=== PATIENT | male | born 1950 | race Caucasian/White ===

== ENCOUNTER 2018-03-27 08:56 | Outpatient (RCR) | payer OTHER ==
--- NOTE | 2018-03-27 11:33 | RS.OPPTEV2 ---
Date of Note: 03/27/18 Visit #: 1 Number of visits approved by Insurance: Medicare Date of Evaluation: 03/27/18 Payer Source: MEDICARE Date of Onset/Injury/Change in Status: 02/27/18 Surgery Performed?: Yes Procedure Performed: Right Arthroscopic subacromial decompression, distal clavicle resection, and labral reconstruction. Treatment Diagnosis: Right shoulder pain, shoulder joint stiffness, s/p surgery History of Condition/Mechanism of Injury:: Mr. Allan reports he had no injury to the right shoulder. States he has had progressive pain and loss of function, which led him to seek medical intervention. Prior Level of Function.....Patient was independent with: ADL's, Self Care, Work /Vocation, Caregiving, Ambulation/Mobility, Community Integration/Access Functional Limitations: Sleep, Self Care, ADL's, Reaching, Pushing, Pulling, Lifting, Carrying Current Subjective/complaints:: Mr. Allan reports he was in a sling for approximately a day following surgery. States he has not been icing the shoulder because he felt like it did not help. He was instructed to perform pendulum exercise, plus he added active shoulder abduction on his own. States she demonstrated his active abduction to Dr. Villatoro, who said it was fine for him to do if it "worked for him." He reports more frequent throbbing in the right shoulder since surgery, but states the throbbing seems to be lower in intensity. He takes pain medicain PRN, which averages to be every other day. States his shoulder seems to hurt the most after he has had a difficult night sleeping. States he has slept on his right side for 60 years, and he has pain when he gets in that position. He has difficulty staying in any other position. He is right hand dominant and is limited with selfcare and ADL's since this surgery. Treatment Side (optional): Right *Precautions: avoid active shoulder flexion or resistance to biceps Medical History Medical History: Hypertension Surgical History Comments:: Left knee arthroscopy Hx Home Medications: Metprolol, Losartan, Potassium, Hydrocodone Patient's Goals: His goal is to regain pain-free AROM of the right shoulder. Pain Assessment - Pain Description Pain Location: Right shoulder Pain Description: Throbbing Current Pain Intensity: 4/10 Worst Pain Intensity: 10/10 Functional Outcome Measure UE Functional Index: 66 (66/80=17.5% impairment ) Other: Based on his presentation in the department, he presents to be at least 30-40% impaired. This is also due to the proximity of surgery and restrictions of active use of the right UE.. - G Codes & Severity Modifier G Codes & Modifier: NA Source of G Code score: NA Observation - Observation Posture: Forward Head, Rounded Shoulders Handedness: Right - Left Shoulder ROM Comments: Left shoulder AROM is WNL's. - Right Shoulder ROM Comments: Right shoulder PROM to 130 degrees with some discomfort reported at end range. Passive abduction to 120 degrees. Passive ER and IR 45 degrees. Patient voluntarily raises the right shoulder into abduction to approimately 105 -110 degrees. Explained to the patient to avoid pain and especially avoid raising the shoulder into flexion, to protect the surgery site. Explained multiple times to Mr. Allan that usually after this type of procedure active motion is not started for 6 weeks. - Left Shoulder Strength Comments: Left shoulder 4+/5 throughout. - Right Shoulder Strength Comments: Right shoulder strength not tested at this time. 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 Right Hand Mellowing Machine Operator Strength: 54-55 lbs. Dynamometer Testing Position: 2nd Position Sensation - Sensation Comments: Reports numbness in the tips of the fingers of the right hand. States this was present years before developing right shoulder pain. Interventions - Exercise/Activities/Manual Therapy Exercises/Activities: Patient received PROM to the right shoulder in all directions, while lying supine. Instructed patient how to perform Pendulum exercises correctly. He demonstrates that he has been performing active shoulder circles and side to side movement in the pendulum position, rather than focusing on letting the arm dangle. Also instructed in scapular retraction and the use of a cane or wand for AAROM into right shoulder abduction. Again emphasized to him, no active shoulder flexion or lifting anything with the right forearm/elbow. Patient advised to use ice on the right shoulder following exercises. Total minutes of Exercise: 18 mins Manual Therapy: NA HOME EXERCISE PROGRAM: Pendulum exercise, Scapular retraction, wand for AAROM into abduction in pain-free range. - Charges Timed Code Treatment Minutes: 18 mins Total Treatment Time: 55 mins Procedures billed for this date of service:: Eval Low, Ex EVALUATION COMPLEXITY LEVEL EVALUATION COMPLEXITY LEVEL: HISTORY: Medium (HTN), EXAM OF BODY SYSTEMS: Low, CLINICAL PRESENTATION: Medium (Pt needs repeated instructions to be compliant with postop restrictions), CLINICAL DECISION MAKING: Low Assessment Assessment: Mr. Allan presents to therapy ~ 4 weeks s/p right shoulder arthroscopic SAD, DCR, and labral reconstruction. He exhibits limited Passive and AROM of the right shoulder. He presents to be performing more active motion with the right shoulder than would be advised at this point following surgery. He received education of the surgical procedure and to avoid AROM into flexion , lifting with the right UE, and anything else that causes pain. He is right hand dominant and needs to regain functional, pain-free AROM to return to his prior level of function with selfcare and ADL's. Patient Education: Education of diagnosis, Body/Joint mechanics, Home Exercise Program, Home Safety, Activity Modification, Education of Plan of Care Rehab Potential: Good Short Term Goals Goal #1: Pt independent and compliant with HEP. Goal to be met by: 04/10/18 Goal #2: PROM of the left shoulder WNL's. Goal to be met by: 04/10/18 Goal #3: Pt to report right shoulder pain 3/10 at it's worst. Goal to be met by: 04/10/18 Goal #4: Pt to demonstrate improved postural awareness. Goal to be met by: 04/10/18 Usp Goals Goal #1: Pt knows HEP and to continue ex's to maintain functional level at D/C. Goal to be met by: 05/06/18 Goal #2: Pt able to sleep without interruption from right shoulder pain. Goal to be met by: 05/06/18 Goal #3: Right shldr AROM WFL's to perform all selfcare and ADL's. Goal to be met by: 05/06/18 Goal #4: Pt able to perform functional reaching as needed without shoulder pain. 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
== END 2018-03-27 23:59 | disposition short-term general hospital (02) ==
PROVIDERS: ATTEND Orthopaedic Surgery
DX: M25.511 Pain in right shoulder (principal); M25.611 Stiffness of right shoulder, not elsewhere classified; Z98.890 Other specified postprocedural states

== ENCOUNTER 2018-04-21 09:00 | Outpatient (RCR) ==
--- NOTE | 2018-03-31 15:13 | RS.OPPTDN ---
Subjective Date of Note: 03/31/18 Visit #: 2 Number of visits approved by Insurance: NA Date of Evaluation: 03/27/18 Payer Source: MEDICARE Treatment Diagnosis: Right shoulder pain, shoulder joint stiffness, s/p surgery Current Subjective/complaints:: Patient reports some pain, mostly a soreness in the right shoulder. *Precautions: avoid active shoulder flexion or resistance to biceps Pain Assessment - Pain Description Pain Location: right shoulder, right upper Current Pain Intensity: 4/10 Other Comments regarding Pain:: Pain is primarily in the upper arm. - Heat/Cryotherapy Treatment: Hot Pack ([id number] to the right shoulder and upper arm prior to EX. Patient in supine. ) Interventions - Exercise/Activities/Manual Therapy Exercises/Activities: Patient received PROM to the right shoulder in all directions, while lying supine. Isometrics for right shoulder add, abd, ext, IR , and ER, all in neutral position. Wand for short range flex/ext, chset press, and scap pro/retraction. Reveiwed Pendulum exercises. Total minutes of Exercise: 42mins Manual Therapy: NA HOME EXERCISE PROGRAM: Pendulum exercise, Scapular retraction, wand for AAROM into abduction in pain-free range. - Charges Timed Code Treatment Minutes: 42mins Total Treatment Time: 62mins Procedures billed for this date of service:: HP, EX3 Assessment: Focus on PROM and limited AAROM. Patient Education: Education of diagnosis, Body/Joint mechanics, Home Exercise Program, Activity Modification Comments: Patient education of dx, joint mechanics, and safety with activities. Patient demonstrates compliance with HEP?: Yes Short Term Goals Goal #1: Pt independent and compliant with HEP. Goal to be met by: 04/10/18 Progress towards Goal:: Progressing Goal #2: PROM of the left shoulder WNL's. Goal to be met by: 04/10/18 Goal #3: Pt to report right shoulder pain 3/10 at it's worst. Goal to be met by: 04/10/18 Goal #4: Pt to demonstrate improved postural awareness. Goal to be met by: 04/10/18 Progress towards Goal:: Progressing Retirement Goals Goal #1: Pt knows HEP and to continue ex's to maintain functional level at D/C. Goal to be met by: 05/06/18 Goal #2: Pt able to sleep without interruption from right shoulder pain. Goal to be met by: 05/06/18 Goal #3: Right shldr AROM WFL's to perform all selfcare and ADL's. Goal to be met by: 05/06/18 Goal #4: Pt able to perform functional reaching as needed without shoulder pain. 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
--- NOTE | 2018-04-02 14:55 | RS.OPPTDN ---
Subjective Date of Note: 04/02/18 Visit #: 3 Number of visits approved by Insurance: NA Date of Evaluation: 03/27/18 Payer Source: MEDICARE Treatment Diagnosis: Right shoulder pain, shoulder joint stiffness, s/p surgery Current Subjective/complaints:: Reports he is doing well with HEP. States he is following precautions as instructed. *Precautions: avoid active shoulder flexion or resistance to biceps Pain Assessment - Pain Description Pain Location: Right shoulder Current Pain Intensity: mild at rest Other Comments regarding Pain:: Reports he has discomfort at night with some disruption of sleep. - Heat/Cryotherapy Treatment: Hot Pack ([id number] to the right shoulder and upper arm prior to EX. Patient in sitting. ) Interventions - Exercise/Activities/Manual Therapy Exercises/Activities: Patient received PROM to the right shoulder in all directions, while lying supine. Isometrics for right shoulder add, abd, ext, IR , and ER, all in neutral position. Isometric bilatearal shoulder add and IR in neutral with ball between hands. Lifts ball for modified chest press and short range flexion in gravity eleminated positions. Wand for short range flex/ext, chset press, and scap pro/retraction. Began limited wall walking with right UE. Total minutes of Exercise: 42mins Manual Therapy: NA HOME EXERCISE PROGRAM: Pendulum exercise, Scapular retraction, wand for AAROM into abduction in pain-free range. - Charges Timed Code Treatment Minutes: 42mins Total Treatment Time: 57mins Procedures billed for this date of service:: HP EX3 Assessment: Patient progressing with exercise. Patient Education: Body/Joint mechanics, Home Exercise Program, Home Safety Patient demonstrates compliance with HEP?: Yes Short Term Goals Goal #1: Pt independent and compliant with HEP. Goal to be met by: 04/10/18 Progress towards Goal:: Progressing Goal #2: PROM of the left shoulder WNL's. Goal to be met by: 04/10/18 Progress towards Goal:: Progressing Goal #3: Pt to report right shoulder pain 3/10 at it's worst. Goal to be met by: 04/10/18 Progress towards Goal:: Progressing (h) Goal #4: Pt to demonstrate improved postural awareness. Goal to be met by: 04/10/18 Progress towards Goal:: Progressing Long-Term Goals Goal #1: Pt knows HEP and to continue ex's to maintain functional level at D/C. Goal to be met by: 05/06/18 Goal #2: Pt able to sleep without interruption from right shoulder pain. Goal to be met by: 05/06/18 Goal #3: Right shldr AROM WFL's to perform all selfcare and ADL's. Goal to be met by: 05/06/18 Goal #4: Pt able to perform functional reaching as needed without shoulder pain. Goal to be met by: 05/06/18 Plan Dates of Long-Term Goals: 05/06/18 Expiration date of current Insurance Approval:: 05/06/18 PLAN: Progress with PROM, AAROM, and gentle strengthening in safe ranges.
--- NOTE | 2018-04-04 12:06 | RS.OPPTDN ---
Subjective Date of Note: 04/04/18 Visit #: 4 Number of visits approved by Insurance: NA Date of Evaluation: 03/27/18 Payer Source: MEDICARE Treatment Diagnosis: Right shoulder pain, shoulder joint stiffness, s/p surgery Current Subjective/complaints:: Reports right shoulder is sore, but feels he is progressing with EX. *Precautions: avoid active shoulder flexion or resistance to biceps Pain Assessment - Pain Description Pain Location: right shoulder Pain Description: Tightness, Aching Pain Description: soreness Current Pain Intensity: mild Other Comments regarding Pain:: Reports difficulty sleeping at night due to right shoulder discomfort. Describes as an ache as the night progresses. - Heat/Cryotherapy Treatment: Hot Pack ([id number] to the right shoulder prior to EX. Pt in supine. ) Interventions - Exercise/Activities/Manual Therapy Exercises/Activities: Patient received PROM to the right shoulder in all directions, while lying supine. Isometrics for right shoulder add, abd, ext, IR , and ER, all in neutral position. Isometric bilatearal shoulder add and IR in neutral with ball between hands. Lifts ball for modified chest press and short range flexion in gravity eleminated positions. Wand for short range flex/ext, chset press, and scap pro/retraction. Instructed in right shoulder flex, ext, abd, and add isometrics in neutral with HEP and given copy. Total minutes of Exercise: 41mins Manual Therapy: NA HOME EXERCISE PROGRAM: Pendulum exercise, Scapular retraction, wand for AAROM into abduction in pain-free range. Isometric right shoulder flex, ext, abd, and add, all in neutral position supine or sitting. - Charges Timed Code Treatment Minutes: 41mins Total Treatment Time: 56mins Procedures billed for this date of service:: HP, EX3 Assessment: Patient progressing with light isometrics in HEP. Patient Education: Education of diagnosis, Home Exercise Program, Home Safety, Activity Modification Comments: Patient education of dx, mechanics, safety, and HEP. Patient demonstrates compliance with HEP?: Yes Short Term Goals Goal #1: Pt independent and compliant with HEP. Goal to be met by: 04/10/18 Progress towards Goal:: Progressing Goal #2: PROM of the left shoulder WNL's. Goal to be met by: 04/10/18 Progress towards Goal:: Progressing Goal #3: Pt to report right shoulder pain 3/10 at it's worst. Goal to be met by: 04/10/18 Progress towards Goal:: Progressing (h) Goal #4: Pt to demonstrate improved postural awareness. Goal to be met by: 04/10/18 Progress towards Goal:: Progressing Custodial Goals Goal #1: Pt knows HEP and to continue ex's to maintain functional level at D/C. Goal to be met by: 05/06/18 Goal #2: Pt able to sleep without interruption from right shoulder pain. Goal to be met by: 05/06/18 Goal #3: Right shldr AROM WFL's to perform all selfcare and ADL's. Goal to be met by: 05/06/18 Goal #4: Pt able to perform functional reaching as needed without shoulder pain. 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
--- NOTE | 2018-04-07 11:16 | RS.OPPTDN ---
Subjective Date of Note: 04/07/18 Visit #: 5 Number of visits approved by Insurance: NA Date of Evaluation: 03/27/18 Payer Source: MEDICARE Treatment Diagnosis: Right shoulder pain, shoulder joint stiffness, s/p surgery Current Subjective/complaints:: Patient reports increased soreness upper right arm. States he has increased HEP but continues to follow precautions. *Precautions: avoid active shoulder flexion or resistance to biceps Pain Assessment - Pain Description Pain Location: Right shouulder, upper arm Pain Description: soreness Current Pain Intensity: mild to mod - Heat/Cryotherapy Treatment: Hot Pack ([id number] to the right shoulder and upper arm prior to EX. Patient in sitting. ) Interventions - Exercise/Activities/Manual Therapy Exercises/Activities: Patient received PROM to the right shoulder in all directions, while lying supine. Isometrics for right shoulder add, abd, ext, IR , and ER, all in neutral position. Isometric bilatearal shoulder add and IR in neutral with ball between hands. Modified chest press and short range flexion while holding ball, gravity eleminated positions. Wand for short range flex/ext , chset press, and scap pro/retraction. Began shoulder pulleys for shoulder flexion only. Began modified [id number]-wall exercise. Total minutes of Exercise: 42mins Manual Therapy: NA HOME EXERCISE PROGRAM: Pendulum exercise, Scapular retraction, wand for AAROM into abduction in pain-free range. Isometric right shoulder flex, ext, abd, and add, all in neutral position supine or sitting. - Objective Findings Observations,measurements,etc.: Patient able to demo full active assisted right shoulder flexion today. - Charges Timed Code Treatment Minutes: 42mins Total Treatment Time: 62mins Procedures billed for this date of service:: HP, EX3 Assessment: Patient progressing well with AAROM and light strengthening. Patient Education: Body/Joint mechanics, Home Exercise Program Patient demonstrates compliance with HEP?: Yes Short Term Goals Goal #1: Pt independent and compliant with HEP. Goal to be met by: 04/10/18 Progress towards Goal:: Progressing Goal #2: PROM of the right shoulder WNL's. Goal to be met by: 04/10/18 (*corrected to R shoulder) Progress towards Goal:: Partially Met Comments:: Full passive right shoulder flexion. Goal #3: Pt to report right shoulder pain 3/10 at it's worst. Goal to be met by: 04/10/18 Progress towards Goal:: Progressing Goal #4: Pt to demonstrate improved postural awareness. Goal to be met by: 04/10/18 Progress towards Goal:: Progressing Fpc Goals Goal #1: Pt knows HEP and to continue ex's to maintain functional level at D/C. Goal to be met by: 05/06/18 Goal #2: Pt able to sleep without interruption from right shoulder pain. Goal to be met by: 05/06/18 Progress towards goal: Progressing Goal #3: Right shldr AROM WFL's to perform all selfcare and ADL's. Goal to be met by: 05/06/18 Progress towards goal: Progressing Goal #4: Pt able to perform functional reaching as needed without shoulder pain. Goal to be met by: 05/06/18 Plan Dates of Fpc Goals: 05/06/18 Expiration date of current Insurance Approval:: 05/06/18 PLAN: Progress with ROM and light strengthening as tolerated.
--- NOTE | 2018-04-09 14:18 | RS.OPPTDN ---
Subjective Date of Note: 04/09/18 Visit #: 6 Number of visits approved by Insurance: NA Date of Evaluation: 03/27/18 Payer Source: MEDICARE Treatment Diagnosis: Right shoulder pain, shoulder joint stiffness, s/p surgery Current Subjective/complaints:: Patient reports improvement in ability to exercise at home. States he is trying to follow precautions. *Precautions: avoid active shoulder flexion or resistance to biceps Pain Assessment - Pain Description Pain Location: right shoulder Current Pain Intensity: mild - Heat/Cryotherapy Treatment: Hot Pack ([id number] to the right shoulder prior to EX. Patient in sitting. ) Interventions - Exercise/Activities/Manual Therapy Exercises/Activities: Patient received PROM to the right shoulder in all directions, while lying supine. Isometrics for right shoulder add, abd, ext, IR , and ER, all in neutral position. Isometric bilatearal shoulder add and IR in neutral with ball between hands. Modified chest press and short range flexion with wand. Yellow theraband pulldowns with wand. Active assisted right shoulder flexion. Mgze-[id number]-wall exercise. Total minutes of Exercise: 44mins Manual Therapy: NA HOME EXERCISE PROGRAM: Pendulum exercise, Scapular retraction, wand for AAROM into abduction in pain-free range. Isometric right shoulder flex, ext, abd, and add, all in neutral position supine or sitting. - Charges Timed Code Treatment Minutes: 44mins Total Treatment Time: 59mins Procedures billed for this date of service:: HP, EX3 Assessment: Patient progressing with active and active assisted exercise. Patient Education: Home Exercise Program, Home Safety Patient demonstrates compliance with HEP?: Yes Short Term Goals Goal #1: Pt independent and compliant with HEP. Goal to be met by: 04/10/18 Progress towards Goal:: Progressing Goal #2: PROM of the right shoulder WNL's. Goal to be met by: 04/10/18 (*corrected to R shoulder) Progress towards Goal:: Partially Met Goal #3: Pt to report right shoulder pain 3/10 at it's worst. Goal to be met by: 04/10/18 Progress towards Goal:: Progressing Goal #4: Pt to demonstrate improved postural awareness. Goal to be met by: 04/10/18 Progress towards Goal:: Progressing Custodial Goals Goal #1: Pt knows HEP and to continue ex's to maintain functional level at D/C. Goal to be met by: 05/06/18 Goal #2: Pt able to sleep without interruption from right shoulder pain. Goal to be met by: 05/06/18 Progress towards goal: Progressing Goal #3: Right shldr AROM WFL's to perform all selfcare and ADL's. Goal to be met by: 05/06/18 Progress towards goal: Progressing Goal #4: Pt able to perform functional reaching as needed without shoulder pain. Goal to be met by: 05/06/18 Plan Dates of Funder Goals: 05/06/18 Expiration date of current Insurance Approval:: 05/06/18 PLAN: Progress with AROM and AAROM in safe positions.
--- NOTE | 2018-04-14 09:00 | RS.OPPTDN ---
Subjective Date of Note: 04/11/18 Visit #: 7 Number of visits approved by Insurance: NA Date of Evaluation: 03/27/18 Payer Source: MEDICARE Treatment Diagnosis: Right shoulder pain, shoulder joint stiffness, s/p surgery Current Subjective/complaints:: Patient reports increased discomfort right shoulder joint. States he may have "over done it a little" with work at home. States he is avoiding active reaching. *Precautions: avoid active shoulder flexion or resistance to biceps Pain Assessment - Pain Description Pain Location: right shoulder Pain Description: Aching Pain Description: soreness Current Pain Intensity: mild to mod - Heat/Cryotherapy Treatment: Hot Pack ([id number] to the right shoulder prior to EX. Pt in sitting. ) Interventions - Exercise/Activities/Manual Therapy Exercises/Activities: In supine, PROM to the right shoulder in all directions. Isometrics for right shoulder add, abd, ext, IR, and ER, all in neutral position. Isometric bilatearal shoulder add and IR in neutral with ball between hands. Modified chest press and short range flexion with wand. Yellow theraband pulldowns with wand. Active assisted right shoulder flexion. Lden-ze-tqt-wall and finger ladder. Total minutes of Exercise: 46mins Manual Therapy: NA HOME EXERCISE PROGRAM: Pendulum exercise, Scapular retraction, wand for AAROM into abduction in pain-free range. Isometric right shoulder flex, ext, abd, and add, all in neutral position supine or sitting. - Charges Timed Code Treatment Minutes: 46mins Total Treatment Time: 61mins Procedures billed for this date of service:: HP, EX3 Assessment: Patient progressing with active exercise, but patient education to review safety precautions. Patient Education: Home Exercise Program Patient demonstrates compliance with HEP?: Yes Short Term Goals Goal #1: Pt independent and compliant with HEP. Goal to be met by: 04/10/18 Progress towards Goal:: Progressing Goal #2: PROM of the right shoulder WNL's. Goal to be met by: 04/10/18 (*corrected to R shoulder) Progress towards Goal:: Partially Met Goal #3: Pt to report right shoulder pain 3/10 at it's worst. Goal to be met by: 04/10/18 Progress towards Goal:: Progressing Goal #4: Pt to demonstrate improved postural awareness. 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 Goal to be met by: 05/06/18 Goal #2: Pt able to sleep without interruption from right shoulder pain. Goal to be met by: 05/06/18 Progress towards goal: Progressing Goal #3: Right shldr AROM WFL's to perform all selfcare and ADL's. Goal to be met by: 05/06/18 Progress towards goal: Progressing Goal #4: Pt able to perform functional reaching as needed without shoulder pain. Goal to be met by: 05/06/18 Plan Dates of Tunnel Elastic Operator Lockstitch Goals: 05/06/18 Expiration date of current Insurance Approval:: 05/06/18 PLAN: Progress with AROM and light strengthening at low levels.
--- NOTE | 2018-04-14 11:54 | RS.OPPTDN ---
Subjective Date of Note: 04/14/18 Visit #: 8 Number of visits approved by Insurance: NA Date of Evaluation: 03/27/18 Payer Source: MEDICARE Treatment Diagnosis: Right shoulder pain, shoulder joint stiffness, s/p surgery Current Subjective/complaints:: Pateint reports soreness at the anterior right shoulder joint. States he increased HEP over the weekend and feels this may have aggravated his shoulder. *Precautions: avoid active shoulder flexion or resistance to biceps Pain Assessment - Pain Description Pain Location: right shoulder and upper arm Pain Description: Aching Pain Description: soreness Current Pain Intensity: mild - Heat/Cryotherapy Treatment: Hot Pack ([id number] to the right shoulder prior to EX. Patient in supine. ) Interventions - Exercise/Activities/Manual Therapy Exercises/Activities: In supine, PROM to the right shoulder in all directions. Isometrics for right shoulder add, abd, ext, IR, and ER, all in neutral position. Isometric bilatearal shoulder add and IR in neutral with ball between hands. Modified chest press and short range flexion with wand. Yellow theraband pulldowns with wand. Yellow theraband for resisted IR and bilateral ER, short ranges. In sitting, active assisted right shoulder flexion. Yellow theraband for resisted scap retraction. Chest pass and overhead pass light ball. Ball-on- the-wall. Bounces ball off wall. Total minutes of Exercise: 44mins Manual Therapy: NA HOME EXERCISE PROGRAM: Pendulum exercise, Scapular retraction, wand for AAROM into abduction in pain-free range. Isometric right shoulder flex, ext, abd, and add, all in neutral position supine or sitting. - Charges Timed Code Treatment Minutes: 44mins Total Treatment Time: 59mins Procedures billed for this date of service:: HP, EX3 Assessment: Patient progressing well with strengthening. Patient Education: Home Exercise Program Patient demonstrates compliance with HEP?: Yes Short Term Goals Goal #1: Pt independent and compliant with HEP. Goal to be met by: 04/10/18 Progress towards Goal:: Progressing Goal #2: PROM of the right shoulder WNL's. Goal to be met by: 04/10/18 (*corrected to R shoulder) Progress towards Goal:: Partially Met Goal #3: Pt to report right shoulder pain 3/10 at it's worst. Goal to be met by: 04/10/18 Progress towards Goal:: Progressing Goal #4: Pt to demonstrate improved postural awareness. 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 Goal to be met by: 05/06/18 Goal #2: Pt able to sleep without interruption from right shoulder pain. Goal to be met by: 05/06/18 Progress towards goal: Progressing Goal #3: Right shldr AROM WFL's to perform all selfcare and ADL's. Goal to be met by: 05/06/18 Progress towards goal: Progressing Goal #4: Pt able to perform functional reaching as needed without shoulder pain. Goal to be met by: 05/06/18 Plan Dates of Prison Goals: 05/06/18 Expiration date of current Insurance Approval:: 05/06/18 PLAN: Progress with light strengthening.
--- NOTE | 2018-04-16 15:47 | RS.OPPTDN ---
Subjective Date of Note: 04/16/18 Visit #: 9 Number of visits approved by Insurance: NA Date of Evaluation: 03/27/18 Payer Source: MEDICARE Treatment Diagnosis: Right shoulder pain, shoulder joint stiffness, s/p surgery Current Subjective/complaints:: Patient reports soreness right shoulder. States he is increasing HEP. *Precautions: avoid active shoulder flexion or resistance to biceps Pain Assessment - Pain Description Pain Location: right shoulder Pain Description: soreness Current Pain Intensity: 3/10 - Heat/Cryotherapy Treatment: Hot Pack ([id number] to the right shoulder prior to EX. Patient in supine. ) Interventions - Exercise/Activities/Manual Therapy Exercises/Activities: In supine, PROM to the right shoulder in all directions. Isometrics for right shoulder add, abd, ext, IR, and ER, all in neutral position. Isometric bilatearal shoulder add and IR in neutral with ball between hands. Chest press and short range flexion with wand. Increased to red theraband pulldowns with wand. Red theraband for resisted IR and bilateral ER, short ranges. In sitting, active assisted right shoulder flexion. Increased to red theraband for resisted scap retraction. Chest pass and overhead pass light ball. Total minutes of Exercise: 42mins Manual Therapy: NA HOME EXERCISE PROGRAM: Pendulum exercise, Scapular retraction, wand for AAROM into abduction in pain-free range. Isometric right shoulder flex, ext, abd, and add, all in neutral position supine or sitting. - Charges Timed Code Treatment Minutes: 42mins Total Treatment Time: 62mins Procedures billed for this date of service:: HP, EX3 Assessment: Patient progressing with strengthening. Patient Education: Body/Joint mechanics, Home Exercise Program Patient demonstrates compliance with HEP?: Yes Short Term Goals Goal #1: Pt independent and compliant with HEP. Goal to be met by: 04/10/18 Progress towards Goal:: Progressing Goal #2: PROM of the right shoulder WNL's. Goal to be met by: 04/10/18 (*corrected to R shoulder) Progress towards Goal:: Partially Met Goal #3: Pt to report right shoulder pain 3/10 at it's worst. Goal to be met by: 04/10/18 Progress towards Goal:: Progressing Goal #4: Pt to demonstrate improved postural awareness. 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 Goal to be met by: 05/06/18 Goal #2: Pt able to sleep without interruption from right shoulder pain. Goal to be met by: 05/06/18 Progress towards goal: Progressing Goal #3: Right shldr AROM WFL's to perform all selfcare and ADL's. Goal to be met by: 05/06/18 Progress towards goal: Progressing Goal #4: Pt able to perform functional reaching as needed without shoulder pain. Goal to be met by: 05/06/18 Plan Dates of Care Home Goals: 05/06/18 Expiration date of current Insurance Approval:: 05/06/18 PLAN: Progress with strengthening of the right UE, working toward PLOF.
--- NOTE | 2018-04-18 12:59 | RS.OPPTDN ---
Subjective Date of Note: 04/18/18 Visit #: 10 Number of visits approved by Insurance: NA Date of Evaluation: 03/27/18 Payer Source: MEDICARE Treatment Diagnosis: Right shoulder pain, shoulder joint stiffness, s/p surgery Current Subjective/complaints:: Mr. Allan states his main problem at this time is sleep. States the right shoulder bothers him at night because he is used to sleeping on his right side. States he wakes up frequently and has to change positions. He returns to Dr. Villatoro next week on Saturday the . States he is performing his exercises at home. He is trying to find a ball to use at home. *Precautions: avoid active shoulder flexion or resistance to biceps Interventions - Exercise/Activities/Manual Therapy Exercises/Activities: In supine, Pt received PROM to the right shoulder in all directions. Patient demonstrates facial grimacing with end range flexion and abduction. Applied long axis distraction to the right arm, to avoid pain with ROM. Isometrics for right shoulder add, abd, ext, IR, and ER, all in neutral position. Isometric bilateral shoulder add and IR in neutral with ball between hands. Chest press and short range flexion with wand. Performed resisted shoulder extension with red theraband. Red theraband for resisted IR and bilateral ER, short ranges. In sitting, active assisted right shoulder flexion with wand. AAROM into flexion with wand presents to be WFL's, nearly WNL's. Performed proprioceptive activity with ball against the wall at shoulder height and ~ 110 degrees flexion. Total minutes of Exercise: 42 mins Manual Therapy: NA HOME EXERCISE PROGRAM: Pendulum exercise, Scapular retraction, wand for AAROM into abduction in pain-free range. Isometric right shoulder flex, ext, abd, and add, all in neutral position supine or sitting. - Charges Timed Code Treatment Minutes: 42 mins Total Treatment Time: 56 mins Procedures billed for this date of service:: Hp, Ex3 Assessment: Mr. Allan demonstrates improved right shoulder AROM. He continues to have pain with certain movements and with trying to sleep at night. He would benefit from continued exercises, including progression of scapular and GH joint stability to regain full use of the right (dominant) UE and be able to sleep at night. Patient Education: Education of diagnosis, Body/Joint mechanics, Home Exercise Program, Education of Plan of Care Patient demonstrates compliance with HEP?: Yes Short Term Goals Goal #1: Pt independent and compliant with HEP. Goal to be met by: 04/10/18 Progress towards Goal:: Progressing Goal #2: PROM of the right shoulder WNL's. Goal to be met by: 04/10/18 (*corrected to R shoulder) Progress towards Goal:: Progressing Comments:: Pain at end range. Goal #3: Pt to report right shoulder pain 3/10 at it's worst. Goal to be met by: 04/10/18 Progress towards Goal:: Progressing Goal #4: Pt to demonstrate improved postural awareness. Goal to be met by: 04/10/18 Progress towards Goal:: Met Intermediate Goals Goal #1: Pt knows HEP and to continue ex's to maintain functional level at D/C. Goal to be met by: 05/06/18 Goal #2: Pt able to sleep without interruption from right shoulder pain. Goal to be met by: 05/06/18 Progress towards goal: Progressing Goal #3: Right shldr AROM WFL's to perform all selfcare and ADL's. Goal to be met by: 05/06/18 Progress towards goal: Progressing Goal #4: Pt able to perform functional reaching as needed without shoulder pain. Goal to be met by: 05/06/18 Progress towards goal: Progressing Plan Dates of Intermediate Goals: 05/06/18 Expiration date of current Insurance Approval:: 05/06/18 PLAN: Progress scapular and GH ROM and strengthening exercises.
--- NOTE | 2018-04-21 15:30 | RS.OPPTDN ---
Subjective Date of Note: 04/21/18 Visit #: 11 Number of visits approved by Insurance: NA Date of Evaluation: 03/27/18 Payer Source: MEDICARE Treatment Diagnosis: Right shoulder pain, shoulder joint stiffness, s/p surgery Current Subjective/complaints:: Patient reports increased discomfort right shoulder joint and that he cannot think of anything that has caused it. *Precautions: avoid active shoulder flexion or resistance to biceps Pain Assessment - Pain Description Pain Location: right shoulder joint and upper arm Pain Description: soreness Current Pain Intensity: moderate - Heat/Cryotherapy Treatment: Hot Pack ([id number] to the right shoulder prior to EX. Patient in supine. ) Interventions - Exercise/Activities/Manual Therapy Exercises/Activities: In supine, Pt received PROM to the right shoulder in all directions. Isometrics for right shoulder add, abd, ext, IR, and ER, all in neutral position. Isometric bilateral shoulder add and IR in neutral with ball between hands. Chest press and overhead flexion with wand. Performed resisted shoulder extension with red theraband. In sitting, active assisted right shoulder flexion with wand. Overhead flexion with ball. Red theraband resisted scap retraction with wand. AAROM into flexion and abduction. In sitting, chest pass and overhead pass, both with light ball. Total minutes of Exercise: 39mins Manual Therapy: NA HOME EXERCISE PROGRAM: Pendulum exercise, Scapular retraction, wand for AAROM into abduction in pain-free range. Isometric right shoulder flex, ext, abd, and add, all in neutral position supine or sitting. - Objective Findings Observations,measurements,etc.: Patient demos active right shldr flexion to 153 degrees, and active abduction to 148 degrees. 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 - Charges Timed Code Treatment Minutes: 42mins Total Treatment Time: 57mins Procedures billed for this date of service:: HP, EX3 Assessment: Patient has some increased discomfort today. He is progressing with AROM and light strengthening. Patient Education: Home Exercise Program, Home Safety, Activity Modification Patient demonstrates compliance with HEP?: Yes Short Term Goals Goal #1: Pt independent and compliant with HEP. Goal to be met by: 04/10/18 Progress towards Goal:: Met Goal #2: PROM of the right shoulder WNL's. Goal to be met by: 04/10/18 (*corrected to R shoulder) Progress towards Goal:: Met Goal #3: Pt to report right shoulder pain 3/10 at it's worst. Goal to be met by: 04/10/18 Progress towards Goal:: Progressing Goal #4: Pt to demonstrate improved postural awareness. 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 Goal to be met by: 05/06/18 Progress towards goal: Progressing Goal #2: Pt able to sleep without interruption from right shoulder pain. Goal to be met by: 05/06/18 Progress towards goal: Progressing Goal #3: Right shldr AROM WFL's to perform all selfcare and ADL's. Goal to be met by: 05/06/18 Progress towards goal: Progressing Goal #4: Pt able to perform functional reaching as needed without shoulder pain. Goal to be met by: 05/06/18 Progress towards goal: Progressing Plan Dates of Skilled Nursing Goals: 05/06/18 Expiration date of current Insurance Approval:: 05/06/18 PLAN: Progress with strengthening this week. Patient will have a follow-up with his Orthopedic surgeon and may continue therapy with new orders.
== END 2018-04-24 23:59 ==
PROVIDERS: ATTEND Orthopaedic Surgery
DX: M25.511 Pain in right shoulder (principal); M25.611 Stiffness of right shoulder, not elsewhere classified; Z98.890 Other specified postprocedural states